=== PATIENT | female | born 2000 | race Caucasian/White ===

== ENCOUNTER 2018-02-17 12:36 | Emergency (ER) | payer SELFPAY ==
--- NOTE | 2018-02-17 14:30 | UC ---
Complaint Female HPI - HPI Summary HPI Summary: 18 y/o female with no PMH, meds- OCP, with 2 days history of pain in vaginal area. Patient has pain in vaginal area with urination, + irritationg, no burning with urination, no fever, chills, no abdominal pain. last sexual activity 2 weeks ago, non-painful. + vaginal discharge--> liquidy, increased amounts. no odor. no pelvic pain. called health center, was placed on macrobid, took 24 hours worth- no relief of symptoms. was not seen, was dx'd over the phone. LMP 3 weeks ago, should get period next week w BC. no cramping. no bowel/ bladder movemnt pain, blood. no condom use. last checked for std's 2 months ago, neg. no pap smear. last UTI ~ 6 months ago. - History Of Current Complaint Chief Complaint: UCGU Stated Complaint: BURNING URINATION Time Seen by Provider: 02/17/18 13:31 Hx Obtained From: Patient Hx Last Menstrual Period: 01/27/18 ?: No - urine neg preg Onset/Duration: Sudden Onset Timing: Constant Severity Initially: Mild Severity Currently: Mild Pain Intensity: 3 Pain Scale Used: 0-10 Numeric - Allergies/Home Medications Allergies/Adverse Reactions: Allergies Allergy/AdvReac Type Severity Reaction Status Date / Time No Known Allergies Allergy Verified 02/17/18 12:45 Home Medications: Home Medications Norgestimate-Ethinyl Estradiol [Trinessa Tablet] 1 each PO BEDTIME 02/17/18 [ History Confirmed 02/17/18] PMH/Surg Hx/FS Hx/Imm Hx Previously Healthy: Yes - Surgical History Surgical History: None - Social History Alcohol Use: None Substance Use Type: None Smoking Status (MU): Never Smoked Tobacco Review of Systems Constitutional: Negative Genitourinary: Dysuria, Vaginal/Penile Pain Is Patient Immunocompromised?: No All Other Systems Reviewed And Are Negative: Yes Physical Exam Triage Information Reviewed: Yes Appearance: Well-Appearing, No Pain Distress, Well-Nourished Vital Signs: Initial Vital Signs Temp 98.5 F 02/17/18 12:46 Pulse 63 02/17/18 12:46 Resp 18 02/17/18 12:46 BP 120/77 02/17/18 12:46 Pulse Ox 100 02/17/18 12:46 Vital Signs Reviewed: Yes Eyes: Positive: Conjunctiva Clear Abdomen Description: Positive: Nontender, No Organomegaly, Soft, Other: - no adenexal/ ovarian/ cervical tenderness Pelvic Exam: Positive: No Cerv. Motion Tender, No Masses, Other - increased vaginal discharge, gómez in color, stickng to blair of vag canal, cervix. no strawberry cervix, cultures taken.. Negative: Active Bleeding, Blood, Cervicitis, Discharge, Lesions, Mass, Tender w/ Cervical Motion, Tender Adnexa, Tender Uterus Skin: Positive: rashes - external vaginal canal with irritation, erythema from 3 -9 oclock, no bleeding, no lesions. Complaint Female Dx - Course Course Of Treatment: BV- stop macrobid, start metronidazole, follow up with student healht - Differential Dx/Diagnosis Provider Diagnoses: bacterial vaginosis Discharge - Sign-Out/Discharge Documenting (check all that apply): Discharge - Discharge Plan Condition: Good Disposition: HOME Prescriptions: metroNIDAZOLE [Metronidazole] 500 mg PO BID #14 tablet Patient Education Materials: Bacterial Vaginosis (ED) Referrals: Replaced By [facility] - Papi ANTHONY [Medical Doctor] - Additional Instructions: - Take metronidazole as directed - Cultures should return within 48 hours, call for results - Stop nitrofurantoin - increase fluid intake - avoid sexual activity x 7 days - Use back up control until antibiotics completed and start new pack- antibitoicsi make control not effective - Billing Disposition and Condition Condition: GOOD Disposition: HOME
--- NOTE | 2018-02-19 15:31 | UC ---
- Progress Note Progress Note: Notify pt no BV may stop flagyl see PCP if still symptomatic Discharge - Sign-Out/Discharge Documenting (check all that apply): Post-Discharge Follow Up - Discharge Plan Condition: Good Disposition: HOME Prescriptions: metroNIDAZOLE [Metronidazole] 500 mg PO BID #14 tablet Patient Education Materials: Bacterial Vaginosis (ED) Referrals: [facility] - Papi ANTHONY [Medical Doctor] - Additional Instructions: - Take metronidazole as directed - Cultures should return within 48 hours, call for results - Stop nitrofurantoin - increase fluid intake - avoid sexual activity x 7 days - Use back up control until antibiotics completed and start new pack- antibitoicsi make control not effective - Billing Disposition and Condition Condition: GOOD Disposition: HOME
== END 2018-02-17 14:32 | disposition home or self-care (01) ==
LOC: UCEAST 12:36
DX: N76.0 Acute vaginitis (principal); Z32.02 Encounter for pregnancy test, result negative; Z87.440 Personal history of urinary (tract) infections
CPT/HCPCS: 81003; 84702; 87070; 87086; 87480; 87491; 87510; 87591; 99202; G0463

== ENCOUNTER 2018-09-04 15:33 | Emergency (ER) | payer OTHER ==
[2018-09-04 16:44] VITALS: BP 146/98
--- NOTE | 2018-09-08 07:29 | UC ---
Discharge - Sign-Out/Discharge Documenting (check all that apply): Post-Discharge Follow Up All imaging exams completed and their final reports reviewed: No Studies - Discharge Plan Condition: Stable Disposition: LEFT WITHOUT BEING SEEN Referrals: No Primary Care Phys,NOPCP [Primary Care Provider] - - Billing Disposition and Condition Condition: STABLE Disposition: Left Without Being Seen
== END 2018-09-04 17:17 | disposition left against medical advice (07) ==
LOC: UCEAST 15:33
DX: H92.09 Otalgia, unspecified ear (principal); Z53.21 Procedure and treatment not carried out due to patient leaving prior to being seen by health care provider

== ENCOUNTER 2019-10-10 10:41 | Emergency (ER) | payer OTHER ==
[2019-10-10 10:57] VITALS: BP 128/89
[2019-10-10] MEDS ORDERED: Naproxen TAB* 250 MG PO ONE (11:23)
--- NOTE | 2019-10-10 11:56 | UC ---
Lower Extremity/Ankle HPI - HPI Summary HPI Summary: 19-year-old female presents with complaints of right ankle pain. States last evening she was walking and axilla stepped into a pothole causing an inversion injury to her right ankle. Complains of pain and swelling to the lateral aspect of the ankle. She states she has been unable to walk or bear weight since the injury. Has decreased range of motion due to pain. Denies any numbness or tingling. - History of Current Complaint Chief Complaint: UCLowerExtremity Stated Complaint: ANKLE INJURY Time Seen by Provider: 10/10/19 11:18 Hx Obtained From: Patient Hx Last Menstrual Period: 10/02/19 Pain Intensity: 8 - Allergies/Home Medications Allergies/Adverse Reactions: Allergies Allergy/AdvReac Type Severity Reaction Status Date / Time No Known Allergies Allergy Verified 10/10/19 10:57 PMH/Surg Hx/FS Hx/Imm Hx Previously Healthy: Yes - Denies significant PMH - Surgical History Surgical History: None - Family History Known Family History: Positive: Non-Contributory - Social History Occupation: Student Lives: Dormitory/Roommates Alcohol Use: Weekly Substance Use Type: None Smoking Status (MU): Never Smoked Tobacco Review of Systems All Other Systems Reviewed And Are Negative: Yes Constitutional: Positive: Negative Skin: Negative: Bruising Respiratory: Positive: Negative Cardiovascular: Positive: Negative Gastrointestinal: Positive: Negative Genitourinary: Positive: Negative Motor: Negative: Weakness Neurovascular: Negative: Decreased Sensation Musculoskeletal: Positive: Decreased ROM, Other: - See HPI Neurological: Positive: Negative Is Patient Immunocompromised?: No Physical Exam - Summary Physical Exam Summary: GENERAL APPEARANCE: Well developed, well nourished, alert and cooperative, and appears to be in no acute distress. CARDIAC: Normal S1 and S2. No S3, S4 or murmurs. Rhythm is regular. There is no peripheral edema, cyanosis or pallor. Extremities are warm and well perfused. Capillary refill is less than 2 seconds. Peripheral pulses intact. LUNGS: Clear to auscultation without rales, rhonchi, wheezing or diminished breath sounds. ABDOMEN: Positive bowel sounds. Soft, nondistended, nontender. No guarding or rebound. No masses or hepatosplenomegally. MUSKULOSKELETAL: ROM intact to all extremities. No joint erythema or tenderness. Normal muscular development. Normal gait. EXTREMITIES: Tenderness over the right lateral malleolus with moderate edema. No gross deformity or ecchymosis. ROM limited d/t pain. Circulation and sensation intact. SKIN: Skin normal color, texture and turgor with no lesions or eruptions. Triage Information Reviewed: Yes Vital Signs: Initial Vital Signs Temp 98 F 10/10/19 10:54 Pulse 98 10/10/19 10:54 Resp 17 10/10/19 10:54 BP 128/89 10/10/19 10:54 Pulse Ox 100 10/10/19 10:54 Vital Signs Reviewed: Yes Diagnostics - Radiology No standard instances Radiology Interpretation Completed By: Radiologist Lower Extremity Course/Dx - Course Course Of Treatment: 19-year-old female presents with complaints of right ankle pain. States last evening she was walking and axilla stepped into a pothole causing an inversion injury to her right ankle. Complains of pain and swelling to the lateral aspect of the ankle. She states she has been unable to walk or bear weight since the injury. Has decreased range of motion due to pain. Denies any numbness or tingling. Afebrile. Vital signs stable. On exam patient was noted to have tenderness over the right lateral malleolus with moderate edema. No gross deformity or ecchymosis. ROM limited d/t pain. Circulation and sensation intact. Remainder of exam was unremarkable. Right ankle x-ray showed no acute fracture or dislocation. Reviewed results with the patient. Recommending conservative treatment for a right ankle sprain including over-the- counter analgesics and RICE. Patient was placed in an Joel wrap and stirrup slipped by the RN. Crutches were provided for progressive weightbearing as tolerated. She is to follow-up with orthopedic surgery in 5-7 days if symptoms are not improving. Anticipatory guidance and warning symptoms are reviewed with the patient. Verbalizes understanding and agrees with plan of care. - Differential Dx/Diagnosis Differential Diagnosis/HQI/PQRI: Contusion, Dislocation, Fracture (Closed), Sprain Provider Diagnosis: Right ankle sprain Discharge ED - Sign-Out/Discharge Documenting (check all that apply): Patient Departure All imaging exams completed and their final reports reviewed: Yes - Discharge Plan Condition: Stable Disposition: HOME Patient Education Materials: Ankle Sprain (ED), Crutch Instructions (ED), Ankle Stirrup Splint (ED) Referrals: No Primary Care Phys,NOPCP [Primary Care Provider] - Luiz Duran MD [Medical Doctor] - 5 Days (Call for appointment.) Additional Instructions: The x-ray performed in the clinic today showed no evidence of a fracture. Rest the ankle as much as possible. Use the crutches provided to you for support. You may slowly increase weight bearing as tolerated. Use the JOEL wrap applied in the clinic to help with swelling. Wear the stirrup splint was applied clinic until you are pain free. You may remove to sleep and shower but should wear at all other times. Apply ice to the affected area for 15-20 minutes at least 4 times a day to help with the pain and swelling. Elevate the leg to help reduce swelling. Take acetaminophen (Tylenol) or ibuprofen (Advil, Motrin) according to directions as needed for pain. Follow up with orthopedic surgery in 5-7 days if symptoms do not improve. Seek immediate medical attention if you have severe pain not managed with pain medication, you are unable to walk or bear any weight, develop numbness or tingling in the foot or toes, or have any worsening of symptoms. - Billing Disposition and Condition Condition: STABLE Disposition: Home
== END 2019-10-10 12:24 | disposition home or self-care (01) ==
LOC: UCEAST 10:41
DX: S93.401A Sprain of unspecified ligament of right ankle, initial encounter (principal); X50.0XXA Overexertion from strenuous movement or load, initial encounter; Y92.9 Unspecified place or not applicable
CPT/HCPCS: 99213; A9270-GY; G0463